=== PATIENT | male | born 1950 | race Caucasian/White ===

== ENCOUNTER 2018-04-24 13:34 | Emergency (ER) | payer MEDICARE ==
[~2018-04-24] VITALS: Ht 177.8 cm; Wt 91.0 kg
[2018-04-24 13:42] VITALS: BP 145/90
--- NOTE | 2018-04-24 13:45 | NUR ---
BIB ambulance. Patient reports eating chicken and feeling like something got stuck in his throat. Patient states that his dental retainer that is normally on his tooth was suddenly missing. A&Ox4. C/O pain when talking or swallowing. Patient mostly whispering. Mild drooling. NAD. Placed on NIBP and pulse ox. Will continue to monitor.
--- NOTE | 2018-04-24 13:45 | NUR ---
Transferred from [facility] .
--- NOTE | 2018-04-24 14:25 | NUR ---
Back to xray.
[2018-04-24] MEDS ORDERED: OMNIPAQUE 350 MG/ML, 150 ML BOTTLE ONE (15:13)
--- NOTE | 2018-04-24 15:26 | NUR ---
Speech improved, but not completely normal. Patient continues to report pain when swallowing.
[2018-04-24] MEDS ORDERED: MAALOX/HYOSCYAMINE/LIDOCAINE 45 ML BTL ONE (16:00)
[2018-04-24] MEDS ORDERED: MAALOX/HYOSCYAMINE/LIDOCAINE 45 ML BTL PO ONE (16:00)
--- NOTE | 2018-04-24 16:01 | NUR ---
GI cocktail admin.
--- NOTE | 2018-04-24 16:35 | NUR ---
Patient/Caregiver given discharge instructions and they have confirmed that they understand the instructions. Patient ambulatory with steady gait.
== END 2018-04-24 16:36 | disposition home or self-care (01) ==
LOC: ED 16:20
DX: K20.9 Esophagitis, unspecified (principal); G89.29 Other chronic pain
CPT/HCPCS: 70360; 71045; 74018; 74220; 99283; Q9967